=== PATIENT | male | born 1975 | race Asian ===

== ENCOUNTER 2016-08-03 19:36 | Emergency (ER) | payer OTHER ==
[~2016-08-03] VITALS: Ht 177.8 cm; Wt 80.0 kg
[2016-08-04] MEDS ORDERED: TETANUS, DIPHTHERIA, PERTUSSIS VAC/PF 0.5ML (>7YR OLD) IM ONE (01:30)
[2016-08-04] MEDS ORDERED: BACITRACIN ZINC OINT UDPKT TOP ONE (01:30)
[2016-08-04] MEDS ORDERED: LIDOCAINE HCL 1% 20ML VIAL (Pyxis) INJ MC ONE (01:30)
[2016-08-04] MEDS ORDERED: IBUPROFEN 600MG TABLET PO ONE (01:30)
[2016-08-04 03:00] VITALS: BP 119/78
[2016-08-04] MEDS ORDERED: HYDROCODONE/ACETAMINOPHEN 5/325MG TABLET PO ONE (03:00)
[2016-08-04] MEDS ORDERED: AMOXICILLIN/POTASSIUM CLAVULANATE 875/125MG TAB PO ONE (03:00)
== END 2016-08-04 03:15 | disposition home or self-care (01) ==
LOC: ER 19:36
DX: S61.051A Open bite of right thumb without damage to nail, initial encounter (principal); W54.0XXA Bitten by dog, initial encounter; Y93.89 Activity, other specified; Y92.018 Other place in single-family (private) house as the place of occurrence of the external cause; F17.210 Nicotine dependence, cigarettes, uncomplicated; Z23 Encounter for immunization
CPT/HCPCS: 12002; 90471; 90715; 99283; J3490; X7700; Z7610; 12001; A4565

== ENCOUNTER 2016-08-06 16:56 | Emergency (ER) | payer OTHER ==
[~2016-08-06] VITALS: Ht 177.8 cm; Wt 84.0 kg
[2016-08-06 17:00] VITALS: BP 125/74
[2016-08-06] MEDS ORDERED: BACITRACIN ZINC OINT UDPKT TOP ONE (17:30)
== END 2016-08-06 17:46 | disposition home or self-care (01) ==
LOC: ER 17:39
DX: Z48.01 Encounter for change or removal of surgical wound dressing (principal); M79.641 Pain in right hand; F17.200 Nicotine dependence, unspecified, uncomplicated
CPT/HCPCS: 99283

== ENCOUNTER 2016-08-09 12:37 | Emergency (ER) | payer OTHER ==
[~2016-08-09] VITALS: Ht 177.8 cm; Wt 84.0 kg
[2016-08-09 12:49] VITALS: BP 117/60
== END 2016-08-09 14:00 | disposition home or self-care (01) ==
LOC: ER 12:37
DX: S61.411D Laceration without foreign body of right hand, subsequent encounter (principal); F17.200 Nicotine dependence, unspecified, uncomplicated; X58.XXXD Exposure to other specified factors, subsequent encounter; Y93.89 Activity, other specified; Y99.8 Other external cause status; Y92.89 Other specified places as the place of occurrence of the external cause
CPT/HCPCS: 99282; Z7610